=== PATIENT | male | born 1975 | race Caucasian/White ===

== ENCOUNTER 2017-11-11 04:01 | Emergency (ER) | payer BC, SELFPAY ==
[2017-11-11 04:04] VITALS: BP 135/86; PULSE 92; RESP 24; TEMP 36.7; O2SAT 99; BMI 36.3
--- NOTE | 2017-11-11 04:56 | ED.VISSUMM ---
- ER Visit Summary Date of Service: 11/11/17 Chief Complaint: Painful anal lump History of Present Illness: The patient is a 42 M who reports she had nausea and diarrhea couple days ago. He now presents because of rectal pain. He feels a lump when he wipes. Has not had any blood. He denies history of trauma. He denies history of ulcerative colitis or Crohn's disease. He denies fever, chills night sweats. He denies dysuria, frequency, urgency hematuria. Denies testicular pain. He denies any drainage. He states his walked and noted that his anus appeared abnormal. Physical Examination: Vital signs remarkable for a blood pressure 135/86 respiratory 24. He appears uncomfortable. Heart is regular without murmur, gallop or rub. S1 and S2 are normal. Lungs are clear to auscultation with good movement of air bilaterally. Abdomen is soft nontender. Rectal exam was remarkable for a large thrombosed hemorrhoid the size of a [place] nuts. Test Results: None Emergency Department Course and Treatment: Patient was informed that the area needed to be excised to expel the clot. Patient was placed left lateral decubitus position. The area was prepped and cleansed. The thrombosed hemorrhoid was anesthetized by local infiltration 1% lidocaine. Pressure was applied and redundant tissue was noted. An elliptical incision was made with removal of 3 large clots 5 mm x 10 mm each. Using 4-0 Vicryl since chromic was not available to stitches were placed to approximate and close the area. Treatment Plan: Follow-up with Dr. Trujillo. Disposition: Discharged home in stable improved condition Impression: 1. Anal pain secondary to large acute thrombosed hemorrhoid 2. Excision of thrombosed hemorrhoid This note was generated with [employer] dictation software. It may contain incorrect words, spelling, and punctuation that were not noted in review of the chart prior to signing ED Disposition - Plan for ED Patient: Disposition: Home or Assisted Living Chief Complaint: Other, Pain/Inj Instructions: Thrombosed Hemorrhoids Referrals: Henri Acuña MD [Primary Care Provider] - Hosea Kirkland MD [STAFF PHYSICIAN] - 3-5 Days
--- NOTE | 2017-11-11 05:01 | NURSING ---
ASSISTED DR. HAAS WITH I&D OF INTERNAL HEMORRHOID.PER DR. HAAS CLEAN AREA AND APPLY GAUZE PACKING TO AREA. AREA CLEANSED AND GAUZE PACKING INSERTED.
[2017-11-11 05:06] VITALS: BP 132/80; PULSE 78; O2SAT 99
== END 2017-11-11 05:07 | disposition home or self-care (01) ==
PROVIDERS: Emergency Provider Emergency Medicine; Family Provider Family Medicine; PCP Family Medicine
DX: K64.5 Perianal venous thrombosis (principal); K21.9 Gastro-esophageal reflux disease without esophagitis; Z79.899 Other long term (current) drug therapy
CPT/HCPCS: 46320; 46083; 99282

== ENCOUNTER → 2018-09-06 09:25 | Outpatient (CLI) | payer BC, SELFPAY ==
[2018-09-06 13:20] LABS: ALB/GLOB Ratio 1.2 RATIO (0.9-2.4); AST(SGOT) 38 U/L (15-37); Alanine Aminotransfer ALT/SGPT 72 U/L (16-61); Albumin, Serum 3.8 g/dL (3.2-5.0); Alkaline Phosphatase 99 U/L (45-117); Anion Gap 6 (5-15); BUN 15 mg/dL (7-18); BUN/Creat Ratio 14.7 RATIO (10-20); Calcium,Total 8.6 mg/dL (8.5-10.1); Chloride 106 mmol/L (98-107); Cholesterol 249 mg/dL (200); Creatinine, Serum 1.02 mg/dL (0.70-1.30); EST Glomerular Filtration Rate 85 mL/min (>60); Est Glom Filt Rate - Afr Amer 103 mL/min (>60); Globulin 3.2 g/dL (2.2-4.2); Glucose 128 mg/dL (74-106); High Density Lipoprotein 43 mg/dL; Potassium 4.1 mmol/L (3.5-5.1); Sodium Level 138 mmol/L (136-145); Triglycerides 341 mg/dL; Very Low Density Lipoprotein 68 mg/dL (5-40)
== END ==
PROVIDERS: Family Provider Family Medicine; PCP Family Medicine; Referring Provider Family Medicine; Visit Provider Family Medicine
DX: R07.9 Chest pain, unspecified (principal)
CPT/HCPCS: 36415; 80053; 80061

== ENCOUNTER → 2019-06-06 12:11 | Outpatient (CLI) | payer BC, SELFPAY ==
--- NOTE | 2019-06-06 12:14 | US_ITS ---
STUDY: SCROTUM ULTRASOUND REASON FOR EXAM: Male, 44 years old. EPIDIDYMITIS ON ANTIBIOTICS SINCE Wednesday06/02/19 TECHNIQUE: Ultrasound evaluation of the scrotum was performed with color Doppler and static fox-scale imaging. COMPARISON: None. FINDINGS: RIGHT TESTICLE INTRATESTICULAR: There is a normal size of the right testicle. The right testicle measures 4.1 x 2.6 x 2.4 cm. There is a homogenous echotexture. There is normal arterial and normal venous vascularity. There is no demonstrated right testicular mass or cyst. EXTRATESTICULAR: The epididymis is normal in size. The epididymis head measures 0.9 x 0.9 cm. There is normal vascularity of the epididymis. There is no demonstrated epididymal cystic structure. There is a very small hydrocele. There is no demonstrated varicocele. There is no demonstrated extratesticular mass or cyst. LEFT TESTICLE INTRATESTICULAR: There is a normal size of the left testicle. The left testicle measures 4.0 x 2.6 x 2.1 cm. There is a homogenous echotexture. There is normal arterial and normal venous vascularity. There is no demonstrated left testicular mass or cyst. EXTRATESTICULAR: The epididymis is normal in size. The epididymis head measures 0.9 x 0.9 cm. There is normal vascularity of the epididymis. There is no demonstrated epididymal cystic structure. There is a very small hydrocele. There is no demonstrated varicocele. There is no demonstrated extratesticular mass or cyst. US/Testicular with Arterial Flow IMPRESSION: Very small bilateral hydroceles, otherwise normal scrotal ultrasound. Electronically Signed: Nadeem Baker MD at 19:56 EST , Service support ,
== END ==
PROVIDERS: PCP Family Medicine; Referring Provider Family Medicine; Visit Provider Family Medicine
DX: N45.1 Epididymitis (principal)
CPT/HCPCS: 76870; 93976

== ENCOUNTER 2019-08-28 07:27 | Emergency (ER) | payer BC, SELFPAY ==
[2019-08-28 07:29] VITALS: BP 143/51; PULSE 64; RESP 15; TEMP 36.6; O2SAT 100; BMI 36.3
--- NOTE | 2019-08-28 07:38 | CT_ITS ---
STUDY: CT ABDOMEN AND PELVIS WITHOUT CONTRAST REASON FOR EXAM: Male, 44 years old. RT TESTICULAR PAIN, NAUSEA, HX SAME 06/2019 RADIATION DOSAGE (If Supplied By Facility): CTDIvol = ( 17.76 ) mGy, DLP = ( 1031.67 ) mGycm TECHNIQUE: Transaxial images were obtained from the dome of the diaphragm to the symphysis pubis without oral contrast, and without intravenous contrast. Sagittal and coronal images were reconstructed. Individualized dose optimization techniques were used for this CT. COMPARISON: None. FINDINGS: The visualized lung bases are unremarkable. The visualized portions of the heart are within normal limits. There is decreased attenuation of the liver consistent with steatosis. Normal gallbladder and extrahepatic biliary system. Normal spleen. Normal pancreas. Normal bilateral adrenal glands. There is mild hydroureteronephrosis on the right. There is a 2 mm calcification at the right UVJ/bladder (axial image number 150 series 2) Normal left kidney. Normal visualized stomach. Normal small intestine. Normal colon. The appendix is visualized and appears normal. Normal abdominal aorta. Normal inferior vena cava. Normal retroperitoneum. Normal urinary bladder. Normal abdominal wall. There are diffuse degenerative changes of the visualized lumbar spine. CT/Abdomen/Pelvis without Cont IMPRESSION: 2 mm right UVJ calculus with mild hydroureteronephrosis. Electronically Signed: Shaq Vergara MD at 8:12 EDT Tel , Service support ,
--- NOTE | 2019-08-28 07:39 | ED.VIS.GEN ---
History of Present Illness Chief Complaint: Male Pain/Injury Informant: Patient Narrative: Patient presents with abdominal pain and testicular pain that started suddenly about an hour ago it is quite intense it is sharp and stabbing. He has no dysuria or hematuria. He denies flank pain but feels similar to a prior kidney stone he has had about 12 years ago although that time the pain started in his flank. He denies any fever or chills he has no nausea or vomiting, no diarrhea or constipation. Past Medical History - Allergies and Home Meds Allergies/Adverse Reactions: Allergies No Known Allergies Allergy (Verified 08/28/19 07:29) Primary Care Physician: Henri Acuña MD [Primary Care Provider] - Past Medical History: - - He is prediabetic, he does not take any medicine. He denies hypertension or hypercholesterolemia or any other medical problems. Smoking Status: Never smoker Review of Systems All systems negative except as indicated General: Denies: Fever Cardiovascular: Denies: Chest pain Respiratory: Denies: Dyspnea Gastrointestinal: Reports: Abdominal pain. Denies: Nausea, Vomiting Genitourinary: Reports: - - Right testicular pain. Denies: Dysuria, Hematuria Musculoskeletal: Denies: Myalgias, Neck pain, Extremity Pain Skin: Denies: Rash Neurological: Denies: Headache, Weakness Endocrine: Denies: Polyuria Hematologic: Denies: Easy bruising, Easy bleeding Physical Exam Vital Signs/Narrative: Vital Signs Temp Pulse Resp BP Pulse Ox 08/28/19 07:29 97.8 F 64 15 143/51 H 100 General: Well nourished, Well developed, - - He appears in distress. Head: Normocephalic ENT: Moist mucous membranes Neck: Supple, Nontender Cardiovascular: Regular rate, Regular rhythm Respiratory: No distress Abdomen: Soft, - - There is right-sided abdominal tenderness there is no flank tenderness the abdominal pain is right suprapubic region there is no pain at McBurney's. There is no guarding or rebound. : - - Normal external genitalia. I am palpating on his right testicle and he has minimal pain, at this time he has a normal testicular lie. There is no erythema or edema. Cannot elicit a cremasteric reflex, however this is bilateral. Extremities: Nontender Skin: Normal color, No rash Neurological: Alert, Normal Strength, Normal Sensation Diagnostic/Tx/Re-eval - Medical Decision Making Patient was seen by me at 7:40 AM, as I am dictating this initial encounter my gestalt is that the patient has a kidney stone I will send him for a CAT scan, I will give him analgesics, I will order blood work and urine. If there is no kidney stone then I will send the patient for a testicular ultrasound although the initial testicular exam was quite benign. Patient is found to have a 2 mm stone at the UVJ, this is consistent with his symptoms his pain is controlled I discussed with urology and patient will be seen in the outpatient environment he will receive analgesia as. He has no signs of infection he understands if he has fever, chills worsening pain he needs to return, I told him infections could be quite dangerous. At this time however there is no signs of infection. ED Disposition - Plan for ED Patient: Disposition: Home or Assisted Living Diagnosis: Renal colic Prescriptions: Oxycodone HCl/Acetaminophen [Percocet 5/325] 1 tab PO Q6H PRN PRN 3 Days #12 tab PRN Reason: Pain Prescription Printed Ondansetron [Zofran Odt] 4 mg PO Q8H PRN PRN #10 tab PRN Reason: Nausea Prescription Printed Referrals: Myron Mcguire MD [STAFF PHYSICIAN] - 3-5 Days
[2019-08-28] MEDS: Morphine 4 MG/ML Syringe IV ×2 (07:48→09:08)
[2019-08-28] MEDS: Ondansetron 4 MG/2 ML Vial IV (07:48)
[2019-08-28] MEDS: Ketorolac 30 MG/ML Syringe 15 MG IV (07:48)
[2019-08-28 07:50] LABS: Absolute Lymphocyte Count 2.79 X10^3/uL (0.83-4.51); Basophil# 0.04 X10^3/uL; Basophil% 0.3 % (0-1); Eosinophil# 0.15 X10^3/uL; Eosinophils% 1.3 % (0-5); Hemoglobin 15.7 g/dL (13.0-16.5); Lymphocyte # 2.79 X10^3/ul (4.0); Lymphocyte % 23.6 % (19-41); Mean Corp Hgb Conc 34.9 g/dL (32-36); Mean Corpuscular Hgb 27.9 pg (27.0-32.0); Mean Corpuscular Volume 79.9 fL (80-94); Mean Platelet Vol. 10.4 fl (6.2-12.0); Monocyte# 0.79 X10^3/uL; Monocyte% 6.7 % (0-10); NRBC Flagged by Analyzer 0 % (0-5); Neutrophil # 7.95 X10^3/uL (2.7-7.7); Neutrophil % 67.3 % (47-70); Platelet Count 278 K/mm3 (150-450); RBC Distribution Width SD 36.9 fl (35.1-43.9); Red Blood Count 5.63 M/mm3 (4.6-6.2); White Blood Count 11.8 K/mm3 (4.4-11.0)
[2019-08-28 08:20] LABS: ALB/GLOB Ratio 0.9 RATIO (0.9-2.4); AST(SGOT) 32 U/L (15-37); Alanine Aminotransfer ALT/SGPT 52 U/L (16-61); Albumin, Serum 3.7 g/dL (3.2-5.0); Alkaline Phosphatase 105 U/L (45-117); Anion Gap 11 (5-15); BUN 12 mg/dL (7-18); BUN/Creat Ratio 9.5 RATIO (10-20); Calcium,Total 9.6 mg/dL (8.5-10.1); Chloride 106 mmol/L (98-107); Creatinine, Serum 1.26 mg/dL (0.70-1.30); EST Glomerular Filtration Rate 66 mL/min (>60); Est Glom Filt Rate - Afr Amer 80 mL/min (>60); Estimated Creatinine Clearance 68.22 ml/min; Globulin 3.9 g/dL (2.2-4.2); Glucose 245 mg/dL (74-106); Potassium 3.5 mmol/L (3.5-5.1); Protein, Total 7.6 g/dL (6.4-8.2); Sodium Level 138 mmol/L (136-145)
[2019-08-28 09:44] VITALS: BP 136/87; PULSE 86; RESP 16; O2SAT 100
[2019-08-28 09:48] LABS: Bacteria 0 SEEN /hpf (None Seen); Mucous, Urine 0 SEEN /hpf (<or=2+); White Blood Cells 0 SEEN /hpf (0-5)
[2019-08-28 10:00] LABS: Color, Urine Yellow (Yellow); Glucose, Dipstick 1000 mg/dl (Normal); Ketone-Dipstick 50 mg/dl (Negative); Leukocyte Esterase-Dipstick Negative /ul (Negative); Nitrite-Dipstick Negative (Negative); Occult Blood-Urine 50 /ul (Negative); Protein-Dipstick 500 mg/dl (Negative); Specific Gravity, Urine 1.025 (1.002-1.030); Urine Bilirubin Dipstick Negative (Negative); Urine Clarity Sl. Cloudy (Clear); Urine Urobilinogen Normal (Normal)
[2019-08-28 10:09] LABS: Red Blood Cells-Urine 0-5 SEEN /hpf (0-5); Squamous Epithelial Cells - UA 0-5 SEEN /hpf (0-5)
[2019-08-28 10:42] VITALS: BP 118/79; PULSE 91; RESP 17; O2SAT 97
== END 2019-08-28 11:26 | disposition home or self-care (01) ==
PROVIDERS: Emergency Provider Emergency Medicine; PCP Family Medicine
DX: N13.2 Hydronephrosis with renal and ureteral calculous obstruction (principal); Z87.442 Personal history of urinary calculi
CPT/HCPCS: 74176; 80053; 81001; 85025; 96374; 96375; 96376; 99283; A4216; J2405

== ENCOUNTER → 2019-09-06 08:26 | Outpatient (CLI) | payer BC, SELFPAY ==
[2019-08-28 07:29] VITALS: BMI 36.3
[2019-09-06 10:29] LABS: ALB/GLOB Ratio 0.9 RATIO (0.9-2.4); AST(SGOT) 28 U/L (15-37); Alanine Aminotransfer ALT/SGPT 54 U/L (16-61); Albumin, Serum 3.6 g/dL (3.2-5.0); Alkaline Phosphatase 101 U/L (45-117); Anion Gap 7 (5-15); BUN 11 mg/dL (7-18); Chloride 104 mmol/L (98-107); Cholesterol 257 mg/dL (200); EST Glomerular Filtration Rate 77 mL/min (>60); Est Glom Filt Rate - Afr Amer 94 mL/min (>60); Glucose 164 mg/dL (74-106); High Density Lipoprotein 40 mg/dL; Protein, Total 7.6 g/dL (6.4-8.2); Sodium Level 138 mmol/L (136-145); Triglycerides 411 mg/dL
[2019-09-07 20:41] LABS: T4 Free Direct 1.12 ng/dL (0.76-1.46)
== END ==
PROVIDERS: PCP Family Medicine; Visit Provider Family Medicine
DX: E11.9 Type 2 diabetes mellitus without complications (principal); R94.6 Abnormal results of thyroid function studies
CPT/HCPCS: 36415; 80053; 80061; 84403; 84439; 84443

== ENCOUNTER 2019-09-20 12:04 | Outpatient (RCR) | payer BC, SELFPAY | END 2019-10-01 23:59 | LOC: DC 12:04 | PROVIDERS: PCP Family Medicine; Visit Provider Family Medicine | DX: E11.9 Type 2 diabetes mellitus without complications (principal) | CPT/HCPCS: G0108 ==

== ENCOUNTER 2019-10-25 11:00 | Outpatient (RCR) | payer BC, SELFPAY | END 2019-10-31 23:59 | LOC: DC 11:00 | PROVIDERS: PCP Family Medicine; Visit Provider Family Medicine | DX: Z71.3 Dietary counseling and surveillance (principal); E11.9 Type 2 diabetes mellitus without complications | CPT/HCPCS: 97802; G0108 ==

== ENCOUNTER 2019-11-09 17:30 | Outpatient (RCR) | payer BC, SELFPAY | END 2019-12-01 23:59 | LOC: DC 17:30 | PROVIDERS: PCP Family Medicine; Referring Provider Family Medicine; Visit Provider Family Medicine | DX: Z71.3 Dietary counseling and surveillance (principal); E11.9 Type 2 diabetes mellitus without complications ==

== ENCOUNTER 2019-12-07 09:54 | Outpatient (RCR) | payer BC, SELFPAY | END 2020-01-01 23:59 | LOC: DC 09:54 | PROVIDERS: PCP Family Medicine; Referring Provider Family Medicine; Visit Provider Family Medicine | DX: Z71.3 Dietary counseling and surveillance (principal) ==

== ENCOUNTER → 2019-12-11 09:20 | Outpatient (CLI) | payer BC, SELFPAY ==
[2019-12-11 13:04] LABS: Anion Gap 4 (5-15); BUN 15 mg/dL (7-18); BUN/Creat Ratio 14.7 RATIO (10-20); Calcium,Total 9.2 mg/dL (8.5-10.1); Chloride 105 mmol/L (98-107); Cholesterol 190 mg/dL (200); Creatinine, Serum 1.02 mg/dL (0.70-1.30); EST Glomerular Filtration Rate 84 mL/min (>60); Est Glom Filt Rate - Afr Amer 102 mL/min (>60); Glucose 146 mg/dL (74-106); High Density Lipoprotein 43 mg/dL; Potassium 4.2 mmol/L (3.5-5.1); Sodium Level 138 mmol/L (136-145); T4 Free Direct 1.03 ng/dL (0.76-1.46); Triglycerides 292 mg/dL; Very Low Density Lipoprotein 58 mg/dL (5-40)
== END ==
PROVIDERS: PCP Family Medicine; Visit Provider Family Medicine
DX: E11.9 Type 2 diabetes mellitus without complications (principal); E78.5 Hyperlipidemia, unspecified; R79.89 Other specified abnormal findings of blood chemistry
CPT/HCPCS: 36415; 80048; 80061; 84439; 84443

== ENCOUNTER 2020-01-04 15:43 | Outpatient (RCR) | payer BC, SELFPAY | END 2020-01-31 23:59 | LOC: DC 15:43 | PROVIDERS: PCP Family Medicine; Referring Provider Family Medicine; Visit Provider Family Medicine | DX: Z71.3 Dietary counseling and surveillance (principal); E11.9 Type 2 diabetes mellitus without complications ==

== ENCOUNTER → 2020-03-04 09:32 | Outpatient (CLI) | payer BC, SELFPAY ==
[2020-03-04 13:01] LABS: Anion Gap 9 (5-15); BUN 13 mg/dL (7-18); BUN/Creat Ratio 11.7 RATIO (10-20); Calcium,Total 9.7 mg/dL (8.5-10.1); Chloride 105 mmol/L (98-107); Creatinine, Serum 1.11 mg/dL (0.70-1.30); EST Glomerular Filtration Rate 76 mL/min (>60); Est Glom Filt Rate - Afr Amer 93 mL/min (>60); Glucose 163 mg/dL (74-106); Potassium 4.2 mmol/L (3.5-5.1); Sodium Level 139 mmol/L (136-145); T4 Free Direct 1.09 ng/dL (0.76-1.46)
== END ==
PROVIDERS: PCP Family Medicine; Visit Provider Family Medicine
DX: E11.9 Type 2 diabetes mellitus without complications (principal); R79.89 Other specified abnormal findings of blood chemistry
CPT/HCPCS: 36415; 80048; 84439; 84443

== ENCOUNTER → 2020-09-03 10:32 | Outpatient (CLI) | payer BC, SELFPAY ==
[2020-09-03 12:31] LABS: ALB/GLOB Ratio 1.1 RATIO (0.9-2.4); AST(SGOT) 17 U/L (15-37); Alanine Aminotransfer ALT/SGPT 46 U/L (16-61); Albumin, Serum 3.9 g/dL (3.2-5.0); Alkaline Phosphatase 104 U/L (45-117); Anion Gap 7 (5-15); BUN 15 mg/dL (7-18); BUN/Creat Ratio 14.3 RATIO (10-20); Calcium,Total 9.2 mg/dL (8.5-10.1); Chloride 103 mmol/L (98-107); Cholesterol 183 mg/dL (200); Creatinine, Serum 1.05 mg/dL (0.70-1.30); EST Glomerular Filtration Rate 81 mL/min (>60); Est Glom Filt Rate - Afr Amer 98 mL/min (>60); Globulin 3.7 g/dL (2.2-4.2); Glucose 133 mg/dL (74-106); High Density Lipoprotein 48 mg/dL; Potassium 4.3 mmol/L (3.5-5.1); Protein, Total 7.6 g/dL (6.4-8.2); Sodium Level 136 mmol/L (136-145); Triglycerides 264 mg/dL; Very Low Density Lipoprotein 53 mg/dL (5-40)
== END ==
PROVIDERS: PCP Family Medicine; Referring Provider Family Medicine; Visit Provider Family Medicine
DX: E11.9 Type 2 diabetes mellitus without complications (principal)
CPT/HCPCS: 36415; 80053; 80061

== ENCOUNTER → 2020-09-09 10:13 | Outpatient (CLI) | payer BC, SELFPAY ==
[2020-09-09 12:43] LABS: Vitamin B12 424 pg/mL (211-911); Vitamin D,25 Hydroxy 25.4 ng/mL
== END ==
PROVIDERS: PCP Family Medicine; Referring Provider Family Medicine; Visit Provider Family Medicine
DX: R53.83 Other fatigue (principal)
CPT/HCPCS: 36415; 82306; 82607; 84403

== ENCOUNTER → 2020-12-04 10:52 | Outpatient (CLI) | payer BC, SELFPAY ==
[2020-12-04 12:34] LABS: T4 Free Direct 1.06 ng/dL (0.76-1.46); Thyroid Stim Hormone (TSH) 2.92 uIU/mL (0.358-3.74)
[2020-12-04 12:38] LABS: Vitamin D,25 Hydroxy 40.3 ng/mL
[2020-12-11 10:05] LABS: Testosterone, % Free 3.73 % (1.50-4.20); Testosterone, Total 413 ng/dL (264-916)
== END ==
PROVIDERS: PCP Family Medicine; Referring Provider Family Medicine; Visit Provider Family Medicine
DX: E55.9 Vitamin D deficiency, unspecified (principal); R53.83 Other fatigue
CPT/HCPCS: 36415; 82306; 84402; 84403; 84439; 84443

== ENCOUNTER → 2021-10-07 | Outpatient (CLI) | payer BC, SELFPAY ==
--- NOTE | 2021-10-07 10:47 | RAD_ITS ---
EXAM: XR LEFT ELBOW COMPLETE, 3 OR MORE VIEWS CLINICAL INDICATION: ELBOW PAIN TECHNIQUE: Frontal, lateral and oblique views of the left elbow. This report was created using [employer] report generation technology. COMPARISON: 03.19.16 FINDINGS: BONES/JOINTS: Unremarkable. There is no displacement of the anterior or posterior fat pads. No acute fracture. No subluxation. Normal alignment. Preservation of the joint space. No destructive or sclerotic lesions. SOFT TISSUES: Unremarkable. No soft tissue swelling or gas. No radiopaque foreign body. RAD/Elbow min 3 Views IMPRESSION: Negative left elbow. Electronically Signed: Qamar Xiong MD at 18:21 EDT ,
[2021-10-07 12:25] LABS: ALB/GLOB Ratio 1.1 RATIO (0.9-2.4); AST(SGOT) 20 U/L (15-37); Alanine Aminotransfer ALT/SGPT 39 U/L (16-61); Albumin, Serum 3.9 g/dL (3.2-5.0); Alkaline Phosphatase 100 U/L (45-117); Anion Gap 10 (5-15); BUN 14 mg/dL (7-18); BUN/Creat Ratio 12.4 RATIO (10-20); Calcium,Total 9.2 mg/dL (8.5-10.1); Chloride 105 mmol/L (98-107); Cholesterol 160 mg/dL (200); Creatinine, Serum 1.13 mg/dL (0.70-1.30); EST Glomerular Filtration Rate 74 mL/min (>60); Est Glom Filt Rate - Afr Amer 90 mL/min (>60); Globulin 3.4 g/dL (2.2-4.2); Glucose 146 mg/dL (74-106); High Density Lipoprotein 37 mg/dL; Potassium 3.9 mmol/L (3.5-5.1); Protein, Total 7.3 g/dL (6.4-8.2); Sodium Level 136 mmol/L (136-145); Thyroid Stim Hormone (TSH) 2.35 uIU/mL (0.358-3.74); Triglycerides 242 mg/dL; Very Low Density Lipoprotein 48 mg/dL (5-40)
== END | disposition home or self-care (01) ==
PROVIDERS: PCP Family Medicine; Referring Provider Family Medicine; Visit Provider Family Medicine
DX: M25.522 Pain in left elbow (principal); E11.9 Type 2 diabetes mellitus without complications; Z13.89 Encounter for screening for other disorder; E55.9 Vitamin D deficiency, unspecified
CPT/HCPCS: 36415; 73080; 80053; 80061; 84403; 84443

== ENCOUNTER 2021-10-31 07:00 | Outpatient (RCR) | payer BC, SELFPAY ==
--- NOTE | 2021-10-17 09:35 | HP.PTEVAL_ITS ---
Patient's Visit Information CHELI ENG is a 46 year old M referred to Physical Therapy by Dr. Henri Acuña MD with a diagnosis of LEFT ELBOW PAIN. Date of Evaluation: 10/17/21 Physical Therapist: Ramy Adams PT, Cert MDT, OCS - Visit Plan Frequency: 2x /Week Duration: 4 Weeks Plan: PT INTERVETIONS MODALTIES ,MANUAL THERAPY( STM/MOBILIZATION) ,ECCENTRICS WRIST ,ACTIVITY MODIFICATION,AND STRERTCHING - Subjective This 46 y/o male presents to physical therapy with left elbow pain. 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 Pain in elbows progressively worse thus seen Pain described as ache and end fatigue. Patient pain located left lateral elbow . Patient had x-rays -. Patient did have MRI 5 years ago showed microtrauma tears. Patient has denies paresthesia/tingling. Patient reports of cramping. Sleeping pain can affects sleeping. Patient pain affects QOL and ability to perform. 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 SOCAIL: . 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 PALPTION: tender lateral epicondyle ,extensors of elbow. AROM: left elbow 10-130 degrees ,right elbow 3-135 degrees flexion ,wrist flexion 80 degrees ,extension 80 degrees ,supination /pronation 90 degrees. MMT: 4/5 elbow/wrist/forearm. 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 NEURO: denies paresthesia/tingling - Balance/Special Test Scores Quick DASH Score: 40.9075 - Goals Goal 1:: Patient to be I with HEP. Goal Time Frame: 4-6 Weeks Goal 2:: Patient to demonstrate 50% improvement with less elbow pain Goal Time Frame: 4-6 Weeks Goal 3:: Patient to improve AROM elbow extension by 5 degrees to improve function. Goal Time Frame: 4-6 Weeks Goal 4:: Patient to improve equal opportunity representative strength by 5-10 # to improve function with job demnads Goal Time Frame: 4-6 Weeks Goal 5:: Patient to improve quick dash score by 5 points to improve QOL and job demands Goal Time Frame: 4-6 Weeks - Rehabilitation Potential Physical Therapy Diagnosis: Patient has chronic left elbow pain with decrease ROM elbow, pain ,tenderness ,affects job and ADLS's and equal opportunity representative strength thus benefit from skilled PT B Rehabilitation Potential: Good - Anticipated Interventions Patient/Client Instruction: Educate patient on: Condition, Plan of Care For the Purpose of:: To decrease pain, To decrease swelling/inflammation, To increase ROM, To improve nutrient delivery to tissue, To increase oxygenation perfusion, To improve muscle performance and motor function, To increase tolerance to activity/condition/position, To improve ability of physical actions for home/community/work/leisure, To improve health of tissue, To decrease soft tissue restriction, To increase flexibility/ROM, To prevent re-injury Therapeutic Exercise to Include: Strength training, Flexibilty training, Passive ROM, Active ROM For the Purpose of:: To decrease pain, To decrease swelling/inflammation, To increase ROM, To improve nutrient delivery to tissue, To increase oxygenation pe rfusion, To improve muscle performance and motor function, To increase tolerance to activity/condition/position, To improve ability of physical actions for home/community/work/leisure, To improve health of tissue, To decrease soft tissue restriction, To increase flexibility/ROM Manual Therapy Techniques to Include: Mobilization, Soft tissue mobilization Comment: FORARM For the Purpose of:: To decrease pain, To increase ROM, To improve nutrient delivery to tissue, To increase oxygenation perfusion, To improve ability of physical actions for home/community/work/leisure, To improve health of tissue, To decrease soft tissue restriction, To increase flexibility/ROM TENS: Yes IF ES: Yes Cryotherapy (ice pack, ice massage): Yes Thermo therapy (hot pack): Yes Ultrasound (thermal/non thermal): Yes For the Purpose of:: To decrease pain, To increase ROM, To improve nutrient delivery to tissue, To increase oxygenation perfusion, To improve health of tissue, To decrease soft tissue restriction Thank you for the opportunity to evaluate your patient. For Medicare and Medicare HMO plans, please review the plan of care and approve it. It will need to be FAXED BACK to us at [phone] for Medicare purposes. For Medicare only, by signing this I certify the plan of care. Please let me know if there are questions or concerns regarding this plan of care. Physician Signature: Date:
== END 2021-10-31 19:00 | disposition home or self-care (01) ==
LOC: PT 07:00
PROVIDERS: PCP Family Medicine; Visit Provider Family Medicine
DX: M25.522 Pain in left elbow (principal)
CPT/HCPCS: 97035; 97110; 97161; 97530

== ENCOUNTER → 2022-04-09 | Outpatient (CLI) | payer BC, SELFPAY ==
[2022-04-09 12:41] LABS: Anion Gap 8 (5-15); BUN 15 mg/dL (7-18); Calcium,Total 9.4 mg/dL (8.5-10.1); Chloride 103 mmol/L (98-107); Cholesterol 171 mg/dL (200); Creatinine, Serum 1.07 mg/dL (0.70-1.30); EST Glomerular Filtration Rate 79 mL/min (>60); Est Glom Filt Rate - Afr Amer 96 mL/min (>60); Glucose 165 mg/dL (74-106); High Density Lipoprotein 41 mg/dL; Sodium Level 136 mmol/L (136-145); Triglycerides 285 mg/dL; Very Low Density Lipoprotein 57 mg/dL (5-40)
== END | disposition home or self-care (01) ==
LOC: MFPLAB 09:59
PROVIDERS: PCP Family Medicine; Referring Provider Family Medicine; Visit Provider Family Medicine
DX: E11.9 Type 2 diabetes mellitus without complications (principal)
CPT/HCPCS: 36415; 80048; 80061

== ENCOUNTER → 2023-02-03 | Outpatient (CLI) | payer BC, SELFPAY ==
[2023-02-03 13:04] LABS: AST(SGOT) 16 U/L (15-37); Alanine Aminotransfer ALT/SGPT 35 U/L (16-61); Albumin, Serum 3.8 g/dL (3.2-5.0); Alkaline Phosphatase 107 U/L (45-117); Anion Gap 6 (5-15); BUN 13 mg/dL (7-18); BUN/Creat Ratio 12.9 RATIO (10-20); Calcium,Total 9.2 mg/dL (8.5-10.1); Chloride 106 mmol/L (98-107); Cholesterol 140 mg/dL (200); Creatinine, Serum 1.01 mg/dL (0.70-1.30); EST Glomerular Filtration Rate 84 mL/min (>60); Est Glom Filt Rate - Afr Amer 102 mL/min (>60); Globulin 3.7 g/dL (2.2-4.2); Glucose 137 mg/dL (74-106); High Density Lipoprotein 43 mg/dL; Protein, Total 7.5 g/dL (6.4-8.2); Sodium Level 136 mmol/L (136-145); Thyroid Stim Hormone (TSH) 3.28 uIU/mL (0.358-3.74); Triglycerides 244 mg/dL; Very Low Density Lipoprotein 49 mg/dL (5-40)
== END | disposition home or self-care (01) ==
LOC: MFPLAB 10:09
PROVIDERS: PCP Family Medicine; Visit Provider Family Medicine
DX: E11.9 Type 2 diabetes mellitus without complications (principal)
CPT/HCPCS: 36415; 80053; 80061; 84403; 84443

== ENCOUNTER → 2023-11-18 | Outpatient (CLI) | payer BC, SELFPAY ==
[2023-11-18 15:21] LABS: Vitamin B12 582 pg/mL (211-911)
[2023-11-18 15:36] LABS: ALB/GLOB Ratio 1.1 RATIO (0.9-2.4); AST(SGOT) 22 U/L (15-37); Alanine Aminotransfer ALT/SGPT 40 U/L (16-61); Alkaline Phosphatase 119 U/L (45-117); Anion Gap 10 (5-15); BUN 16 mg/dL (7-18); BUN/Creat Ratio 15.4 RATIO (10-20); Calcium,Total 9.4 mg/dL (8.5-10.1); Chloride 105 mmol/L (98-107); Cholesterol 146 mg/dL (200); Creatinine, Serum 1.04 mg/dL (0.70-1.30); EST Glomerular Filtration Rate 81 mL/min (>60); Est Glom Filt Rate - Afr Amer 98 mL/min (>60); Globulin 3.7 g/dL (2.2-4.2); Glucose 137 mg/dL (74-106); High Density Lipoprotein 41 mg/dL; Potassium 3.9 mmol/L (3.5-5.1); Protein, Total 7.7 g/dL (6.4-8.2); Sodium Level 136 mmol/L (136-145); Thyroid Stim Hormone (TSH) 3.35 uIU/mL (0.358-3.74); Triglycerides 275 mg/dL; Very Low Density Lipoprotein 55 mg/dL (5-40)
== END | disposition home or self-care (01) ==
LOC: MFPLAB 11:05
PROVIDERS: PCP Family Medicine; Visit Provider Family Medicine
DX: E11.9 Type 2 diabetes mellitus without complications (principal)
CPT/HCPCS: 36415; 80053; 80061; 82607; 84443

== ENCOUNTER → 2024-08-03 | Outpatient (CLI) | payer BC, SELFPAY ==
--- NOTE | 2024-08-03 09:15 | RAD_ITS ---
EXAM: Elbow minimum three views CLINICAL HISTORY: Left elbow, loss extension COMPARISON: None available TECHNIQUE: Three views left elbow FINDINGS: No fracture or dislocation. Medial, ulnar side, of the elbow with osteoarthrosis, osteophyte formation and far medial joint space narrowing suggested. There appears to be a joint effusion and contains a small intra-articular osseous body at the superior recess on the lateral view. RAD/Elbow min 3 Views IMPRESSION: No fracture or dislocation. Medial, ulnar side, of the elbow with osteoarthrosis, osteophyte formation and far medial joint space narrowing suggested. There appears to be a joint effusion and contains a small intra-articular osseo us body at the superior recess on the lateral view. Reading Location: [id number]
== END | disposition home or self-care (01) ==
LOC: MTRAD 09:14
PROVIDERS: PCP Family Medicine; Referring Provider Family Medicine; Visit Provider Family Medicine
DX: M25.522 Pain in left elbow (principal)
CPT/HCPCS: 73080

== ENCOUNTER → 2024-09-14 | Outpatient (CLI) | payer BC, SELFPAY ==
--- NOTE | 2024-09-14 13:38 | MRI_ITS ---
PROCEDURE: UPPER EXT JOINT ONLY(ROUTINE) 09/14/2024 REASON FOR EXAM: PAIN. Injury 9 years ago, with increasing pain and immobility. Unable to straighten. TECHNIQUE: MRI of the left elbow without contrast.. Multiplanar and multisequence images were obtained without IV contrast administration. COMPARISON: COMPARISON : Left elbow study of 08/03/2024. FINDINGS: Bone Marrow and bone: Mild to moderate degenerative changes are seen of the left elbow, most prominent in the humeroulnar articulation, where [id number] irregular articular cartilage thinning is seen. No acute osseous signal changes are seen. Effusion: A small elbow joint effusion is identified. Soft Tissues: No soft tissue mass is seen. No free or loculated fluid collection is evident. No muscle signal changes are appreciated. Ligaments and Tendons: Thickening and inhomogeneous signal of the visualized portions of the triceps tendon noted, consistent with tendinopathy. No tendon retraction is seen. No tendon pathology is additionally seen MRI/Upper Ext Joint Only(Routine) IMPRESSION: 1. [id number] left elbow joint degenerative changes, as mentioned in the findings of the report. 2. Small left elbow joint effusion. 3. Triceps tendinopathy. Reading Location: [place] [id number]
== END | disposition home or self-care (01) ==
PROVIDERS: PCP Family Medicine; Referring Provider Orthopaedic Surgery Sports Medicine; Visit Provider Orthopaedic Surgery Sports Medicine
DX: M77.12 Lateral epicondylitis, left elbow (principal)
CPT/HCPCS: 73221

== ENCOUNTER → 2024-11-21 | Outpatient (CLI) | payer BC, SELFPAY ==
[2024-11-21 17:00] LABS: AST(SGOT) 18 U/L (<=37); Alanine Aminotransfer ALT/SGPT 27 U/L (<=46); Albumin, Serum 4.5 g/dL (3.5-5.0); Alkaline Phosphatase 105 U/L (40-129); Anion Gap 15 (5-15); BUN 9 mg/dL (4-19); BUN/Creat Ratio 10.5 RATIO (10-20); Calcium,Total 10.1 mg/dL (7.6-11.0); Carbon Dioxide 20.2 mmol/L (21.0-32.0); Chloride 103 mmol/L (98-108); Cholesterol 148 mg/dL (<=200); Globulin 2.7 g/dL (2.2-4.2); Glucose 111 mg/dL (70-99); Low Density Lipoprotein Calc. 65 mg/dL; Potassium 4.2 mmol/L (3.3-5.1); Triglycerides 186 mg/dL; Very Low Density Lipoprotein 37 mg/dL (5-40); Vitamin D,25 Hydroxy 38.6 ng/mL (30-100); cholesterol:hdl ratio screen 3.21
== END | disposition home or self-care (01) ==
LOC: MFPLAB 12:14
PROVIDERS: PCP Family Medicine; Referring Provider Family Medicine; Visit Provider Family Medicine
DX: E11.9 Type 2 diabetes mellitus without complications (principal)
CPT/HCPCS: 36415; 80053; 80061; 82306; 84403; 84443